=== PATIENT | male | born 1950 | race American Indian/Alaskan Native ===

== ENCOUNTER 2021-09-13 16:58 | Emergency (ER) | payer OTHER, MEDICARE ==
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
[2021-09-13 21:54] VITALS: BP 119/73
== END 2021-09-13 21:55 | disposition home or self-care (01) ==
LOC: ED 16:58
DX: M62.830 Muscle spasm of back (principal); E11.9 Type 2 diabetes mellitus without complications; Z79.899 Other long term (current) drug therapy
CPT/HCPCS: 72100; 72125; 99284